=== PATIENT | female | born 1975 | race Two or more races ===

== ENCOUNTER 2017-02-22 13:18 | Emergency (ER) | payer OTHER ==
[~2017-02-22] VITALS: Ht 157.5 cm; Wt 65.8 kg
[2017-02-22 14:47] VITALS: BP 170/102
[2017-02-22] MEDS ORDERED: cloNIDine HCL 0.1 MG TAB PO ONE (15:00)
[2017-02-22] MEDS ORDERED: KETOROLAC TROMETH 60MG/2ML VIAL IM ONE (15:00)
== END 2017-02-22 15:54 | disposition home or self-care (01) ==
LOC: ER 13:18
DX: S16.1XXA Strain of muscle, fascia and tendon at neck level, initial encounter (principal); I10 Essential (primary) hypertension; X50.0XXA Overexertion from strenuous movement or load, initial encounter; Y93.89 Activity, other specified; Y99.8 Other external cause status; Y92.89 Other specified places as the place of occurrence of the external cause
CPT/HCPCS: 96372; 99283; J1885; J7030